=== PATIENT | female | born 1970 | race African-American/Black ===

== ENCOUNTER 2016-08-25 16:30 | Emergency (ER) | payer MEDICAID ==
[~2016-08-25] VITALS: Ht 170.2 cm; Wt 128.0 kg
[~2016-08-25 16:30] MED LIST: ASPI-1159 PO; ATEN-42 PO; HYDR25TA PO; TRAM50TA3 PO
[2016-08-25] MEDS ORDERED: ASPIRIN 325MG TABLET PO ONE (17:45)
[2016-08-25] MEDS ORDERED: LABETALOL HCL 20MG/4ML CARPUJECT IV ONE (17:45)
[2016-08-25 18:10] LABS: BASOPHILS % 1.1 % (0.0-2.0); EOSINOPHILS % 0.8 % (0.0-5.0); HEMATOCRIT. 37.4 % (36.0-48.0); HEMOGLOBIN. 12.4 g/dL (12.0-16.0); LYMPHOCYTES % 34.2 % (20.0-50.0); MEAN CORPUSCULAR HEMOGLOBIN 29.5 pg (28.0-32.0); MEAN CORPUSCULAR VOLUME 89.4 fL (81.0-99.0); MONOCYTES % 6.9 % (2.0-8.0); PLATELET 334 x1000/uL (130-400); RED BLOOD CELL COUNT 4.19 mill/uL (4.2-5.4); RED CELL DISTRIBUTION WIDTH 15.9 % (11.6-14.6)
[2016-08-25 18:17] LABS: INR 1.1; PARTIAL THROMBOPLASTIN TIME 26.1 sec (24.0-34.0); PROTHROMBIN TIME 10.9 sec
[2016-08-25 18:26] LABS: CARBON DIOXIDE 28 mEq/L (21-32); CHLORIDE 106 mEq/L (98-107); ETHANOL BLOOD < 10 mg/dL; TROPONIN I < 0.02 ng/mL (0.00-0.04)
[2016-08-25 18:27] LABS: HCG SCREEN NEGATIVE
[2016-08-25 19:26] VITALS: BP 101/69
== END 2016-08-25 20:14 | disposition home or self-care (01) ==
LOC: EDBEDREQ 17:42 → ER 17:46 → CANBEDREQ 21:15
DX: I16.0 Hypertensive urgency (principal); F41.9 Anxiety disorder, unspecified; F17.200 Nicotine dependence, unspecified, uncomplicated; I10 Essential (primary) hypertension; J45.909 Unspecified asthma, uncomplicated; F32.9 Major depressive disorder, single episode, unspecified; I25.2 Old myocardial infarction; Z88.0 Allergy status to penicillin; Z91.14 Patient's other noncompliance with medication regimen; Z79.82 Long term (current) use of aspirin
CPT/HCPCS: 36415; 70450; 71010; 80053; 83880; 84484; 84703; 85025; 85610; 85730; 93005; 99285; G0482; J3490; Z7610

== ENCOUNTER 2017-03-31 15:49 | Emergency (ER) | payer MEDICAID ==
[~2017-03-31] VITALS: Ht 170.2 cm; Wt 131.0 kg
[2017-03-31] MEDS ORDERED: IBUPROFEN 600MG TABLET PO ONE (17:15)
[2017-03-31 17:36] LABS: BASOPHILS % 1.3 % (0.0-2.0); HEMATOCRIT. 38.8 % (36.0-48.0); HEMOGLOBIN. 12.9 g/dL (12.0-16.0); LYMPHOCYTES % 40.1 % (20.0-50.0); MEAN CORPUSCULAR HEMOGLOBIN 29.9 pg (28.0-32.0); MEAN CORPUSCULAR VOLUME 90.1 fL (81.0-99.0); MEAN PLATELET VOLUME 8.7 fl (7.4-10.4); MONOCYTES % 7.6 % (2.0-8.0); PLATELET 333 x1000/uL (130-400)
[2017-03-31 17:43] LABS: CHLORIDE 106 mEq/L (98-107)
[2017-03-31 18:05] LABS: CLARITY URINE CLOUDY (CLEAR); COLOR URINE YELLOW (YELLOW); KETONES URINE TRACE (NEGATIVE); LEUKOCYTE ESTERASE URINE 1+ (NEGATIVE); NITRITE URINE NEGATIVE (NEGATIVE); OCCULT BLOOD URINE NEGATIVE (NEGATIVE); PH URINE 6.5 (4.5-8.0); PROTEIN URINE NEGATIVE (NEGATIVE); SPECIFIC GRAVITY URINE 1.031 (1.005-1.030); UROBILINOGEN URINE 0.2 E.U./dL (0.2-1.0)
[2017-03-31] MEDS ORDERED: METHOCARBAMOL 500MG TABLET PO ONE (18:30)
[2017-03-31 19:02] VITALS: BP 120/77
== END 2017-03-31 19:03 | disposition home or self-care (01) ==
LOC: ER 15:57
DX: M54.41 Lumbago with sciatica, right side (principal); N39.0 Urinary tract infection, site not specified; F41.9 Anxiety disorder, unspecified; J45.909 Unspecified asthma, uncomplicated; I11.0 Hypertensive heart disease with heart failure; F17.200 Nicotine dependence, unspecified, uncomplicated; I50.9 Heart failure, unspecified; F32.9 Major depressive disorder, single episode, unspecified; Z79.82 Long term (current) use of aspirin; Z86.73 Personal history of transient ischemic attack (TIA), and cerebral infarction without residual deficits; Z88.0 Allergy status to penicillin
CPT/HCPCS: 36415; 73630; 80048; 81001; 81025; 85379; 93971; 99285

== ENCOUNTER 2017-04-13 12:17 | Emergency (ER) | payer MEDICAID ==
[~2017-04-13] VITALS: Ht 170.2 cm; Wt 128.0 kg
[2017-04-13] MEDS ORDERED: LORAZEPAM 1MG TABLET PO ONE (12:45)
[2017-04-13 13:46] VITALS: BP 124/76
== END 2017-04-13 13:47 | disposition home or self-care (01) ==
LOC: ER 12:17
DX: F41.0 Panic disorder [episodic paroxysmal anxiety] (principal); J45.909 Unspecified asthma, uncomplicated; I10 Essential (primary) hypertension; F32.9 Major depressive disorder, single episode, unspecified; F17.200 Nicotine dependence, unspecified, uncomplicated; Z59.0 Homelessness; Z86.73 Personal history of transient ischemic attack (TIA), and cerebral infarction without residual deficits; Z88.0 Allergy status to penicillin; Z79.82 Long term (current) use of aspirin
CPT/HCPCS: 93005; 99284

== ENCOUNTER 2017-06-21 12:34 | Emergency (ER) | payer MEDICAID ==
[~2017-06-21] VITALS: Ht 170.2 cm; Wt 127.0 kg
[2017-06-21] MEDS ORDERED: HYDROCODONE/APAP 7.5/325MG 1 TAB TABLET PO ONE (15:45)
[2017-06-21] MEDS ORDERED: CLINDAMYCIN HCL 150MG CAPSULE PO ONE (15:45)
[2017-06-21] MEDS ORDERED: IPRATROPIUM/ALBUTEROL 0.5-3(2.5)MG/3ML NEB HHN ONE (16:30)
[2017-06-21] MEDS ORDERED: LORAZEPAM 1MG TABLET PO ONE (17:15)
[2017-06-21 19:45] VITALS: BP 109/64
== END 2017-06-21 20:20 | disposition home or self-care (01) ==
LOC: ER 13:44
DX: K02.9 Dental caries, unspecified (principal); M25.551 Pain in right hip; K05.10 Chronic gingivitis, plaque induced; J45.909 Unspecified asthma, uncomplicated; I10 Essential (primary) hypertension; Z88.0 Allergy status to penicillin; Z79.82 Long term (current) use of aspirin
CPT/HCPCS: 73502; 94640; 99284; J7620; Z7610

== ENCOUNTER 2017-06-23 19:31 | Emergency (ER) | payer MEDICAID ==
[~2017-06-23] VITALS: Ht 170.2 cm; Wt 86.0 kg
[2017-06-23] MEDS ORDERED: ACETAMINOPHEN WITH CODEINE 300/30MG TABLET PO STA (20:22)
[2017-06-23] MEDS ORDERED: LORAZEPAM 1MG TABLET PO ONE (20:30)
[2017-06-23 21:03] VITALS: BP 106/66
[2017-06-23 21:10] LABS: CLARITY URINE CLOUDY (CLEAR); COLOR URINE ORANGE (YELLOW); KETONES URINE TRACE (NEGATIVE); LEUKOCYTE ESTERASE URINE 2+ (NEGATIVE); NITRITE URINE NEGATIVE (NEGATIVE); OCCULT BLOOD URINE 3+ (NEGATIVE); PH URINE 5.5 (4.5-8.0); PROTEIN URINE 2+ (NEGATIVE)
[2017-06-23 21:12] LABS: BASOPHILS % 1.2 % (0.0-2.0); EOSINOPHILS % 1.4 % (0.0-5.0); HEMOGLOBIN. 12.4 g/dL (12.0-16.0); LYMPHOCYTES % 38.4 % (20.0-50.0); MEAN CORPUSCULAR HEMOGLOBIN 30.9 pg (28.0-32.0); MEAN CORPUSCULAR VOLUME 89.7 fL (81.0-99.0); MEAN PLATELET VOLUME 7.9 fl (7.4-10.4); MONOCYTES % 9.6 % (2.0-8.0); NEUTROPHILS % 49.4 % (40.0-76.0); PLATELET 363 x1000/uL (130-400); RED BLOOD CELL COUNT 4.02 mill/uL (4.2-5.4); RED CELL DISTRIBUTION WIDTH 14.4 % (11.6-14.6)
[2017-06-23 21:17] LABS: CHLORIDE 106 mEq/L (98-107)
[2017-06-23 21:20] LABS: INR 1.1
[2017-06-23] MEDS ORDERED: POTASSIUM CHLORIDE 20MEQ TABLET SR PO ONE (22:00)
[2017-06-23] MEDS ORDERED: SULFAMETHOXAZOLE/TRIMETHOPRIM 800/160MG TABLET PO ONE (22:00)
== END 2017-06-23 23:12 | disposition home or self-care (01) ==
LOC: ER 19:31
DX: N30.00 Acute cystitis without hematuria (principal); F41.9 Anxiety disorder, unspecified; J44.9 Chronic obstructive pulmonary disease, unspecified; I10 Essential (primary) hypertension; Z79.82 Long term (current) use of aspirin; Z88.0 Allergy status to penicillin; Z86.718 Personal history of other venous thrombosis and embolism
CPT/HCPCS: 36415; 74176; 80053; 81003; 81025; 85025; 85610; 99285

== ENCOUNTER 2018-07-19 18:46 | Inpatient (IN) | payer MEDICAID ==
[~2018-07-19] VITALS: Ht 165.1 cm; Wt 99.8 kg
[2018-07-19] MEDS ORDERED: KETOROLAC 30MG/ML VIAL IV STA (19:13)
[2018-07-19 19:30] LABS: BASOPHILS % 0.9 % (0.0-2.0); EOSINOPHILS % 0.8 % (0.0-5.0); HEMOGLOBIN. 12.5 g/dL (12.0-16.0); LYMPHOCYTES % 37.9 % (20.0-50.0); MEAN CORPUSCULAR HEMOGLOBIN 31.2 pg (28.0-32.0); MEAN CORPUSCULAR VOLUME 92.5 fL (81.0-99.0); MEAN PLATELET VOLUME 7.9 fl (7.4-10.4); MONOCYTES % 5.9 % (2.0-8.0); NEUTROPHILS % 54.5 % (40.0-76.0); PLATELET 312 x1000/uL (130-400)
[2018-07-19 19:36] LABS: CHLORIDE 105 mEq/L (98-107)
[2018-07-19 19:37] LABS: PARTIAL THROMBOPLASTIN TIME 27.6 sec (23.4-31.0); PROTHROMBIN TIME 10.2 sec (9.6-11.0)
[2018-07-19 20:50] LABS: HCG SCREEN NEGATIVE
[2018-07-19] MEDS ORDERED: ASPIRIN 325MG EC TABLET PO ONE (22:30)
[2018-07-20 08:00] VITALS: BP 121/80
[2018-07-20] MEDS ORDERED: ONDANSETRON HCL 4MG/2ML INJ IV PRN (10:30)
[2018-07-20] MEDS ORDERED: ACETAMINOPHEN 325MG TABLET PO PRN (10:30)
[2018-07-20] MEDS ORDERED: GUAIFENESIN 200MG/10ML SUGAR FREE UDC PO PRN (10:30)
[2018-07-20] MEDS ORDERED: MAGNESIUM/ALUMINUM HYDROXIDE/SIMETHICONE 30ML UDC PO PRN (10:30)
[2018-07-20] MEDS ORDERED: CLONIDINE 0.1MG TABLET PO PRN (10:30)
[2018-07-20] MEDS ORDERED: IPRATROPIUM/ALBUTEROL 0.5-3(2.5)MG/3ML NEB INH PRN (10:30)
[2018-07-20] MEDS ORDERED: DIPHENHYDRAMINE 50MG/ML VIAL IV PRN (10:30)
[2018-07-20] MEDS ORDERED: DOCUSATE SODIUM 100MG CAPSULE PO PRN (10:30)
[2018-07-20] MEDS ORDERED: LISI10TA5 MT (10:48)
[2018-07-20] MEDS ORDERED: BECL10.62 IH (10:48)
[2018-07-20] MEDS ORDERED: TIZA2TAB4 PO (10:48)
[2018-07-20] MEDS ORDERED: GABA-531 MT (10:48)
[2018-07-20] MEDS ORDERED: FURO-152 MT (10:48)
[2018-07-20] MEDS ORDERED: ACET-2708 PO (10:48)
[2018-07-20] MEDS ORDERED: NAP5EC PO (10:48)
[2018-07-20] MEDS ORDERED: ALBU4TAB6 MT (10:48)
[2018-07-20] MEDS ORDERED: FLUO20CA33 PO (10:48)
[2018-07-20] MEDS: HYDROCODONE/ACETAMINOPHEN 5/325MG TABLET PO PRN ×2 (11:10→18:02)
[2018-07-20 11:22] VITALS: BP 117/72
[2018-07-20 16:25] VITALS: BP 112/76
[2018-07-20 16:57] VITALS: BP 123/81
[2018-07-20 20:00] VITALS: BP 115/73
[2018-07-20 20:26] LABS: CREATINE KINASE 116 IU/L (26-192)
[2018-07-20 20:27] LABS: CREATINE KINASE MB FRACTION < 1.0 ng/mL (0.5-3.6)
[2018-07-20 20:45] LABS: FOLIC ACID (FOLATE) SERUM 10.8 ng/mL (>5.38)
[2018-07-20] MEDS ORDERED: AMITRIPTYLINE 25MG TABLET PO SCH (21:00)
[2018-07-21] VITALS: BP 116/62
[2018-07-21 00:31] LABS: CREATINE KINASE 117 IU/L (26-192)
[2018-07-21 00:32] LABS: CREATINE KINASE MB FRACTION < 1.0 ng/mL (0.5-3.6)
[2018-07-21] MEDS: TOPIRAMATE 25MG TABLET PO SCH ×2 (01:50→09:20)
[2018-07-21 04:00] VITALS: BP 124/65
[2018-07-21 08:00] VITALS: BP 122/71
[2018-07-21 08:16] LABS: BASOPHILS % 0.7 % (0.0-2.0); EOSINOPHILS % 0.8 % (0.0-5.0); HEMATOCRIT. 36.1 % (36.0-48.0); HEMOGLOBIN. 12.3 g/dL (12.0-16.0); MEAN CORPUSCULAR HEMOGLOBIN 31.2 pg (28.0-32.0); MEAN CORPUSCULAR VOLUME 91.5 fL (81.0-99.0); MEAN PLATELET VOLUME 8.2 fl (7.4-10.4); MONOCYTES % 6.6 % (2.0-8.0); NEUTROPHILS % 55.9 % (40.0-76.0); PLATELET 321 x1000/uL (130-400); RED BLOOD CELL COUNT 3.94 mill/uL (4.2-5.4); RED CELL DISTRIBUTION WIDTH 13.9 % (11.6-14.6)
[2018-07-21 09:23] LABS: CHLORIDE 107 mEq/L (98-107)
[2018-07-21 09:36] LABS: LDL CHOLESTEROL 125 mg/dL (5-100)
[2018-07-21 09:37] LABS: HDL CHOLESTEROL 48 mg/dL (40-59)
[2018-07-21 12:00] VITALS: BP 133/88
[2018-07-21 15:21] VITALS: BP 133/88
== END 2018-07-21 16:15 | disposition home or self-care (01) | DRG 47 ==
LOC: ER 18:46 → 6WST 23:37 → ENRESERV 07-20 07:10
PROVIDERS: ADMIT Internal Medicine; ATTEND Internal Medicine
DX: G45.9 Transient cerebral ischemic attack, unspecified (principal); I11.0 Hypertensive heart disease with heart failure; E66.01 Morbid (severe) obesity due to excess calories; I50.9 Heart failure, unspecified; G44.1 Vascular headache, not elsewhere classified; E87.6 Hypokalemia; D72.829 Elevated white blood cell count, unspecified; G43.909 Migraine, unspecified, not intractable, without status migrainosus; M54.30 Sciatica, unspecified side; J44.9 Chronic obstructive pulmonary disease, unspecified; F32.9 Major depressive disorder, single episode, unspecified; F41.9 Anxiety disorder, unspecified; F17.200 Nicotine dependence, unspecified, uncomplicated; G89.4 Chronic pain syndrome; Z79.82 Long term (current) use of aspirin; Z88.0 Allergy status to penicillin; Z59.0 Homelessness; Z68.36 Body mass index [BMI] 36.0-36.9, adult; I69.341 Monoplegia of lower limb following cerebral infarction affecting right dominant side
CPT/HCPCS: 36415; 71045; 80061; 82550; 82553; 82607; 82746; 83735; 84100; 84443; 84484; 84703; 93005; 93880; 93970; 96374; 97162; 97166; 99285; J1885

== ENCOUNTER 2018-08-18 13:31 | Emergency (ER) | payer MEDICAID ==
[~2018-08-18] VITALS: Ht 170.2 cm; Wt 83.9 kg
[~2018-08-18 13:31] MED LIST changes: +ACET-2708 PO; +ALBU4TAB6 MT; -ASPI-1159 PO; +ASPI-1393 PO; +BECL10.62 IH; +FLUO20CA33 PO; +FURO-152 MT; +GABA-531 MT; +LISI10TA5 MT; +NAP5EC PO; +TIZA2TAB4 PO
[2018-08-18] MEDS ORDERED: KETOROLAC 60MG/2ML VIAL IM STA (15:28)
[2018-08-18] MEDS ORDERED: TETANUS, DIPHTHERIA, PERTUSSIS VAC/PF 0.5ML (>7YR OLD) IM ONE (15:30)
[2018-08-18 16:02] VITALS: BP 156/99
== END 2018-08-18 16:50 | disposition home or self-care (01) ==
LOC: ER 13:31
DX: K02.9 Dental caries, unspecified (principal); K04.7 Periapical abscess without sinus; F41.9 Anxiety disorder, unspecified; I10 Essential (primary) hypertension; J44.9 Chronic obstructive pulmonary disease, unspecified; F17.200 Nicotine dependence, unspecified, uncomplicated; F12.10 Cannabis abuse, uncomplicated; Z88.0 Allergy status to penicillin; Z79.899 Other long term (current) drug therapy
CPT/HCPCS: 81025; 90471; 90715; 96372; 99283; J1885

== ENCOUNTER 2019-02-15 13:59 | Emergency (ER) | payer MEDICAID ==
[~2019-02-15] VITALS: Ht 170.2 cm; Wt 108.0 kg
[~2019-02-15 13:59] MED LIST changes: -TIZA2TAB4 PO; +TIZA2TAB5 PO
[2019-02-15] MEDS ORDERED: VISCOUS LIDOCAINE 2% 15 ML UDC MM ONE (22:45)
[2019-02-15] MEDS ORDERED: KETOROLAC 60MG/2ML VIAL IM ONE (22:45)
[2019-02-16 02:13] VITALS: BP 123/81
== END 2019-02-16 02:15 | disposition home or self-care (01) ==
LOC: ER 13:59
DX: J02.9 Acute pharyngitis, unspecified (principal); F41.9 Anxiety disorder, unspecified; F32.9 Major depressive disorder, single episode, unspecified; Z86.73 Personal history of transient ischemic attack (TIA), and cerebral infarction without residual deficits; Z79.899 Other long term (current) drug therapy; Z88.0 Allergy status to penicillin
CPT/HCPCS: 71045; 87804; 93005; 96372; 99284; J1885

== ENCOUNTER 2021-12-23 21:47 | Emergency (ER) | payer MEDICAID ==
[~2021-12-23] VITALS: Ht 170.2 cm; Wt 153.9 kg
[~2021-12-23 21:47] MED LIST changes: -ASPI-1393 PO; +ASPI-1497 PO; -GABA-531 MT; +GABA-532 MT; +LISI10TA26 MT; -LISI10TA5 MT; +TIZA-191 PO; -TIZA2TAB5 PO
[2021-12-23 23:29] VITALS: BP 148/98
[2021-12-24] MEDS ORDERED: HYDROCODONE/ACETAMINOPHEN 10/325MG TABLET PO ONE (01:30)
[2021-12-24 04:00] LABS: BASOPHILS % 1.1 % (0.0-2.0); EOSINOPHILS % 3.1 % (0.0-5.0); HEMATOCRIT. 37.1 % (36.0-48.0); HEMOGLOBIN. 12.5 g/dL (12.0-16.0); LYMPHOCYTES % 36.2 % (20.0-50.0); MEAN CORPUSCULAR HEMOGLOBIN 31.9 pg (28.0-32.0); MEAN CORPUSCULAR VOLUME 94.6 fL (81.0-99.0); MONOCYTES % 8.2 % (2.0-8.0); NEUTROPHILS % 51.4 % (40.0-76.0); PLATELET 355 x1000/uL (130-400); RED BLOOD CELL COUNT 3.92 mill/uL (4.2-5.4)
[2021-12-24] MEDS: HYDROCODONE/ACETAMINOPHEN 10/325MG TABLET PO NR ×2 (04:00→06:12)
[2021-12-24 04:11] LABS: CHLORIDE 104 mEq/L (98-107)
[2021-12-24] MEDS ORDERED: CYCL10TA21 MT (05:15)
== END 2021-12-24 06:12 | disposition home or self-care (01) ==
LOC: ER 21:47
DX: R60.0 Localized edema (principal); N93.8 Other specified abnormal uterine and vaginal bleeding; D25.9 Leiomyoma of uterus, unspecified; J44.9 Chronic obstructive pulmonary disease, unspecified; E11.9 Type 2 diabetes mellitus without complications; I10 Essential (primary) hypertension; Z86.718 Personal history of other venous thrombosis and embolism; Z79.01 Long term (current) use of anticoagulants; Z88.0 Allergy status to penicillin
CPT/HCPCS: 36415; 71045; 76830; 76856; 80053; 83880; 84484; 85025; 93005; 93970; 99285

== ENCOUNTER 2023-10-04 14:49 | Emergency (ER) | payer MEDICAID, OTHER ==
[~2023-10-04] VITALS: Ht 170.2 cm; Wt 127.0 kg
[~2023-10-04 14:49] MED LIST changes: +CYCL10TA21 MT
[2023-10-04 15:10] VITALS: O2SAT 97
[2023-10-04] MEDS ORDERED: NAPR-679 MT (17:46)
[2023-10-04 18:13] VITALS: BP 152/94; PULSE 68; RESP 16; TEMP 36.83628; O2SAT 97
[2023-10-04] MEDS ORDERED: METF-414 MT (18:28)
== END 2023-10-04 18:15 | disposition home or self-care (01) ==
LOC: ER 14:53
DX: M25.522 Pain in left elbow (principal); J44.1 Chronic obstructive pulmonary disease with (acute) exacerbation; I10 Essential (primary) hypertension; E11.9 Type 2 diabetes mellitus without complications; Z88.0 Allergy status to penicillin; Z79.899 Other long term (current) drug therapy; Z98.890 Other specified postprocedural states
CPT/HCPCS: 73080; 73620; 82962; 99284

== ENCOUNTER 2024-05-12 12:44 | Emergency (ER) | payer MEDICAID, OTHER ==
[~2024-05-12] VITALS: Ht 170.2 cm; Wt 138.3 kg
[~2024-05-12 12:44] MED LIST changes: +GABA-1180 MT; -GABA-532 MT; +METF-414 MT; -NAP5EC PO; +NAPR-1495 PO; +NAPR-679 MT
[2024-05-12 12:52] VITALS: O2SAT 100
[2024-05-12 12:56] VITALS: BP 148/84; PULSE 87; RESP 18; TEMP 36.8; O2SAT 99
[2024-05-12 13:26] LABS: BASOPHILS % 1.1 % (0.0-2.0); HEMATOCRIT. 39.7 % (36.0-48.0); HEMOGLOBIN. 13.1 g/dL (12.0-16.0); LYMPHOCYTES % 42.2 % (20.0-50.0); MEAN CORPUSCULAR HEMOGLOBIN 31.5 pg (28.0-32.0); MEAN CORPUSCULAR HGB CONC 33.1 g/dL (31.0-37.0); MEAN CORPUSCULAR VOLUME 95.2 fL (81.0-99.0); MEAN PLATELET VOLUME 8.9 fl (7.4-10.4); MONOCYTES % 4.9 % (2.0-8.0); NEUTROPHILS % 50.8 % (40.0-76.0); PLATELET 315 x1000/uL (130-400); RED BLOOD CELL COUNT 4.17 mill/uL (4.2-5.4); RED CELL DISTRIBUTION WIDTH 14.2 % (11.6-14.6); WHITE BLOOD COUNT 9.8 x1000/uL (4.5-11.0)
[2024-05-12 13:30] LABS: CHLORIDE 105 mEq/L (98-107); POTASSIUM 3.6 mEq/L (3.5-5.1); SODIUM 138 mEq/L (136-145)
[2024-05-12 13:32] LABS: CARBON DIOXIDE 27 mEq/L (21-32)
[2024-05-12 13:36] LABS: CREATININE 0.7 mg/dL (0.6-1.0)
[2024-05-12 13:37] LABS: GLUCOSE 186 mg/dL (70-105); UREA NITROGEN BLOOD 10 mg/dL (9-23)
[2024-05-12] MEDS: KETOROLAC 30MG/ML VIAL IV STA (13:42)
[2024-05-12] MEDS: METOCLOPRAMIDE HCL 10MG/2ML VIAL IV ONE (13:42)
[2024-05-12] MEDS: SODIUM CHLORIDE 0.9% 1,000 ML IV ONE (14:00)
[2024-05-12] MEDS ORDERED: IBUP-2028 PO (15:16)
== END 2024-05-12 15:35 | disposition home or self-care (01) ==
LOC: ER 12:44
DX: R51.9 Headache, unspecified (principal); R68.83 Chills (without fever); M54.2 Cervicalgia; J44.9 Chronic obstructive pulmonary disease, unspecified; E11.9 Type 2 diabetes mellitus without complications; I10 Essential (primary) hypertension; Z86.73 Personal history of transient ischemic attack (TIA), and cerebral infarction without residual deficits; Z79.899 Other long term (current) drug therapy; Z79.82 Long term (current) use of aspirin; Z79.1 Long term (current) use of non-steroidal anti-inflammatories (NSAID); Z79.84 Long term (current) use of oral hypoglycemic drugs; Z79.51 Long term (current) use of inhaled steroids; Z88.0 Allergy status to penicillin
CPT/HCPCS: 99285; 96374; 70450; 96361; 96375; 80048; 85025; 36415; J1885; J2765; J7030